=== PATIENT | male | born 1975 | race Two or more races ===

== ENCOUNTER 2017-12-28 00:12 | Emergency (ER) | payer SELFPAY ==
[~2017-12-28] VITALS: Ht 165.1 cm; Wt 85.3 kg
[2017-12-28] MEDS ORDERED: IBUPROFEN 800 MG TABLET PO ONE (00:30)
[2017-12-28] MEDS ORDERED: IBUPROFEN 800 MG TABLET ONE (00:31)
--- NOTE | 2017-12-28 01:15 | NUR ---
Patient discharged to home in stable conditon. Written and verbal after care instructions given. Patient verbalizes understanding of instructions. Patient able to ambulate unassisted with a steady gait. Patient left with all personal belongings.
[2017-12-28 01:19] VITALS: BP 122/84
== END 2017-12-28 01:15 | disposition home or self-care (01) ==
LOC: ER 00:17
DX: S97.111A Crushing injury of right great toe, initial encounter (principal); S97.121A Crushing injury of right lesser toe(s), initial encounter; E11.9 Type 2 diabetes mellitus without complications; W23.0XXA Caught, crushed, jammed, or pinched between moving objects, initial encounter; Y93.89 Activity, other specified; Y92.89 Other specified places as the place of occurrence of the external cause; Y99.8 Other external cause status
CPT/HCPCS: 73660; A4663